=== PATIENT | female | born 1935 | race Native Hawaiian/Other Pacific Islander ===

== ENCOUNTER 2017-06-17 14:45 | Outpatient (CLI) | payer OTHER | END 2017-06-17 19:09 | disposition home or self-care (01) | LOC: US 14:45 | DX: M79.605 Pain in left leg (principal); R60.0 Localized edema ==

== ENCOUNTER 2019-03-03 13:37 | Outpatient (CLI) | payer OTHER ==
[2019-03-03 14:14] LABS: POTASSIUM 3.7 mmol/L (3.6-5.2)
== END 2019-03-03 19:52 | disposition home or self-care (01) ==
LOC: LAB 13:37
PROVIDERS: Nurse Practitioner Family
DX: E87.6 Hypokalemia (principal); R26.81 Unsteadiness on feet; M19.90 Unspecified osteoarthritis, unspecified site
CPT/HCPCS: 80048

== ENCOUNTER 2019-03-26 10:56 | Outpatient (CLI) | payer OTHER ==
[2019-03-26 11:47] LABS: POTASSIUM 3.7 mmol/L (3.6-5.2)
== END 2019-03-26 19:25 | disposition home or self-care (01) ==
LOC: LAB 10:56
PROVIDERS: Nurse Practitioner Family
DX: I10 Essential (primary) hypertension (principal); E87.6 Hypokalemia
CPT/HCPCS: 80053

== ENCOUNTER 2019-05-06 14:41 | Outpatient (CLI) | payer OTHER | END 2019-05-06 19:32 | disposition home or self-care (01) | LOC: LAB 14:41 | DX: R30.0 Dysuria (principal) | CPT/HCPCS: 81000; 87086; 87088 ==

== ENCOUNTER 2019-05-12 12:53 | Outpatient (CLI) | payer OTHER | END 2019-05-12 19:28 | disposition home or self-care (01) | LOC: LAB 12:53 | DX: N39.0 Urinary tract infection, site not specified (principal) | CPT/HCPCS: 81000 ==